=== PATIENT | male | born 1950 | race Caucasian/White ===

== ENCOUNTER 2016-10-23 09:13 | Outpatient (CLI) | payer MEDICARE | END 2016-10-23 09:14 | disposition home or self-care (01) | LOC: NAV LAB 09:13 | PROVIDERS: ATTEND Urology | DX: N40.2 Nodular prostate without lower urinary tract symptoms (principal) | CPT/HCPCS: 36415; 84153 ==

== ENCOUNTER 2016-12-10 10:16 | Outpatient (CLI) | payer MEDICARE, OTHER ==
[2016-12-10 10:57] LABS: Bilirubin Negative (Negative); Blood, Urine Trace (Negative); Glucose, Urine (Dipstick) Negative (Negative); Ketone, Urine Negative (Negative); Nitrite Negative (Negative); Protein, Urine (Dipstick) Negative (Neg-Trace); Urobilinogen 0.2 mg/dL (0.2-1.0)
[2016-12-10 11:18] LABS: RBC/HPF 0-3 HPF (0-3)
[2016-12-10 11:19] LABS: Bacteria/HPF 2+ HPF (None Seen); Transitional Epithelial 0-3 HPF (0-3)
== END 2016-12-10 10:17 | disposition home or self-care (01) ==
LOC: NAV LAB 10:16
PROVIDERS: ATTEND Urology
DX: N40.2 Nodular prostate without lower urinary tract symptoms (principal)
CPT/HCPCS: 81001; 87077; 87086; 87186

== ENCOUNTER 2017-04-06 09:18 | Outpatient (CLI) | payer MEDICARE, OTHER | END 2017-04-06 09:19 | disposition home or self-care (01) | LOC: NAV LAB 09:18 | PROVIDERS: ATTEND Urology | DX: C61 Malignant neoplasm of prostate (principal) | CPT/HCPCS: 36415; 84153 ==

== ENCOUNTER 2017-06-26 09:55 | Outpatient (CLI) | payer MEDICARE, OTHER | END 2017-06-26 09:56 | disposition home or self-care (01) | LOC: NAV LAB 09:55 | PROVIDERS: ATTEND Urology | DX: R97.20 Elevated prostate specific antigen [PSA] (principal) | CPT/HCPCS: 36415; 84153 ==

== ENCOUNTER 2018-02-20 03:46 | Emergency (ER) | payer MEDICARE, OTHER ==
[2018-02-20 04:22] LABS: #Basophils 0.1 thou/uL (0.0-0.2); #Lymphocytes 0.9 thou/uL (1.20-3.40); #Monocytes 0.6 thou/uL (0.11-0.59); #Neutrophils 7.1 thou/uL (1.40-6.50); %Basophils 0.9 % (0.0-1.0); %Eosinophils 0.5 % (0.0-10.0); %Lymphocytes 10.3 % (21.0-51.0); %Monocytes 6.7 % (0.0-10.0); %Neutrophils 81.6 % (42.0-75.0); Hemoglobin 14.8 g/dL (14.0-18.0); Mean Corpuscular HGB CONC 31.8 g/dL (32.0-36.0); Mean Corpuscular Volume 91.3 fl (80.0-94.0); Mean Platelet Volume 7.2 fL (7.4-10.4); Platelet Count 210 thou/uL (130-400); RBC Distribution Width 12.2 % (11.5-14.5); Red Blood Cell (RBC) Count 5.09 mill/uL (4.70-6.10); White Blood Cell (WBC) Count 8.7 thou/uL (4.8-10.8)
[2018-02-20] MEDS ORDERED: Pantoprazole 40 MG VIAL ONE (04:24)
[2018-02-20] MEDS ORDERED: Mag-Al Plus 1200 MG/1200 MG/120 MG/30 ML UDCUP ONE (04:24)
[2018-02-20] MEDS ORDERED: Lidocaine Viscous Sol 2% 15 ml UD Cup ONE (04:24)
[2018-02-20 04:36] LABS: ALT (SGPT) 19 U/L (8-55); AST (SGOT) 22 U/L (5-34); Alkaline Phosphatase 43 U/L (40-150); Anion Gap 12 mmol/L (10-20); BUN (Urea Nitrogen) 14 mg/dL (8.4-25.7); Bilirubin, Total 0.5 mg/dL (0.2-1.2); Calc. Creatinine Clearance 0 mL/min (70-130); Calcium 8.9 mg/dL (7.8-10.44); Carbon Dioxide 29 mmol/L (23-31); Chloride 102 mmol/L (98-107); Estimated GFR-MDRD Greater than 90; Globulin 2.9 g/dL (2.4-3.5); Glucose 116 mg/dL (80-115); Lipase 43 U/L (8-78); Protein, Total 6.9 g/dL (5.8-8.1); Sodium 139 mmol/L (136-145)
[2018-02-20 04:37] LABS: CKMB 4.5 ng/mL (0-6.6); Troponin I Less than 0.010 ng/mL (< 0.028)
[2018-02-20] MEDS ORDERED: Nitroglycerin 0.4 MG TAB (25 Tab Bottle) ONE (04:48)
[2018-02-20] MEDS ORDERED: Ketorolac Tromethamine 30 MG/ML VIAL ONE (05:33)
[2018-02-20] MEDS ORDERED: Sodium Chloride 0.9% 1,000 ML ONE (07:51)
[2018-02-20] MEDS ORDERED: Levofloxacin 500 mg/D5W 100 ml Premix Bag ONE (07:51)
[2018-02-20] MEDS ORDERED: predniSONE 20 MG TAB ONE (08:05)
--- NOTE | 2018-02-20 08:15 | RAD ---
PORTABLE CHEST: Date: 02/20/18 HISTORY: Chest pain. FINDINGS: Lungs are clear of infiltrate. Heart and mediastinum unremarkable. Postop sternotomy changes are note d. Vascular markings normal. IMPRESSION: No acute process. POS: [facility]
[2018-02-20] MEDS ORDERED: Iopamidol 370 76% 100 ML VIAL ONE (09:00)
[2018-02-20] MEDS ORDERED: Scopolamine 1.5 mg/72 hour Patch ONE (09:37)
--- NOTE | 2018-02-20 09:59 | CT ---
PRELIMINARY REPORT/[facility]/EMERGENCY AFTER HOURS PROCEDURE: EXAM: CT Abdomen and Pelvis With Intravenous Contrast EXAM DATE/TIME: Exam ordered 02/20/2018 5:51 AM CLINICAL HISTORY: 67 years old, male; Pain; Abdominal pain; Epigastric; Patient HX: Abd pain & nausea, lizbeth pressure nacho n starting yesterday afternoon, constant since then. Radiating to back. TECHNIQUE: Axial computed tomography images of the abdomen and pelvis with intravenous contrast. All CT scans at this facility use one or more dose reduction techniques, viz.: automated exposure control; ma/kV adj ustment per patient size (including targeted exams where dose is matched to indication; i.e. head); or iterative reconstruction technique. Coronal and sagittal reformatted images were created and reviewed. CONTRAST: 96 mL of ISOVUE 370 administered intravenously. COMPARISON: No relevant prior studies available. FINDINGS: Lung bases: Unremarkable. No mass. No consolidation. Mediastinum: Mild fluid distention of the distal esophagus compatible with gastroesophageal reflux. ABDOMEN: Liver: Small incidental hepatic cysts. Liver otherwise unremarkable. Gallbladder and bile ducts: Noncalcified stone versus tumefactive sludge ball at the neck of the gallbladder. Gallbladder is distended. There is subtle pericholecystic inflammation and trace pericho lecystic fluid. Findings are compatible with acute cholecystitis. No biliary ductal dilatation. Pancreas: Unremarkable. No mass. No ductal dilation. Spleen: Borderline splenomegaly. Adrenals: Unremarkable. No mass. Kidneys and ureters: Small incidental left renal cyst. Kidneys otherwise unremarkable. No hydronephro sis. Stomach and bowel: No bowel wall thickening or intestinal obstruction. PELVIS: Appendix: Appendix not visualized. No evidence of appendicitis. Bladder: Unremarkable. No mass. Reproductive: Prostatomegaly. ABDOMEN and PELVIS: Intraperitoneal space: Unremarkable. No free air. No significant fluid collection. Bones/joints: No acute fracture. No dislocation. Soft tissues: Right inguinal hernia containing fat only. Vasculature: Unremarkable. No abdominal aortic aneurysm. Lymph nodes: Unremarkable. No enlarged lymph nodes. IMPRESSION: 1. Acute cholecystitis. 2. Mild fluid distention of the distal esophagus compatible with gastroesophageal reflux. 3. Borderline splenomegaly. Thank you for allowing us to participate in the care of your patient. Dictated and Authenticated by: Jairo Gomez MD 02/20/2018 7:18 AM Central Time ([place] & [place]) FINAL REPORT CT ABDOMEN AND PELVIS WITH IV CONTRAST: Date: 02/20/18 FINDINGS/IMPRESSION: Gallbladder is distended. There is evidence of a noncalcified gallstone in the neck of the gallbladde r. Some questionable pericholecystic inflammatory change is noted as described on preliminary report. Cystic lesions are seen in the liver and left kidney. I am in agreement with the preliminary report issued by [facility]. POS: [facility]
== END 2018-02-20 09:13 | disposition short-term general hospital (02) ==
LOC: NAV ERS 03:46
DX: K81.0 Acute cholecystitis (principal); G70.00 Myasthenia gravis without (acute) exacerbation; Z79.52 Long term (current) use of systemic steroids; Z79.899 Other long term (current) drug therapy
CPT/HCPCS: 71045; 74177; 80053; 82150; 82553; 83690; 84484; 85025; 85379; 93005; 96365; 96375; C9113; J0131; J1885; J1956; J7050; J7506

== ENCOUNTER 2020-12-24 14:42 | Outpatient (CLI) | payer MEDICARE, OTHER | END 2020-12-24 14:43 | disposition home or self-care (01) | LOC: NAV RAD 14:42 | PROVIDERS: ATTEND Family Medicine | DX: L03.011 Cellulitis of right finger (principal) ==

== ENCOUNTER 2022-09-20 09:13 | Emergency (ER) | payer MEDICARE, OTHER ==
[2022-09-20] MEDS ORDERED: Metoprolol Tartrate 5 MG/5 ML VIAL ONE (09:51)
[2022-09-20 10:01] LABS: #Basophils 0.1 thou/uL (0.0-0.2); #Eosinphils 0.1 thou/uL (0.0-0.7); #Lymphocytes 0.8 thou/uL (1.20-3.40); #Monocytes 0.5 thou/uL (0.11-0.59); #Neutrophils 13.9 thou/uL (1.40-6.50); %Basophils 0.9 % (0.0-1.0); %Eosinophils 0.4 % (0.0-10.0); %Monocytes 3.5 % (0.0-10.0); %Neutrophils 90.2 % (42.0-75.0); Hemoglobin 15.7 g/dL (14.0-18.0); Mean Corpuscular HGB CONC 32.5 g/dL (32.0-36.0); Mean Corpuscular Hemoglobin 31.1 pg (27.0-31.0); Mean Corpuscular Volume 95.4 fl (78.0-98.0); Mean Platelet Volume 7.6 fL (7.4-10.4); Platelet Count 234 10x3/uL (130-400); RBC Distribution Width 12.7 % (11.5-14.5); Red Blood Cell (RBC) Count 5.05 mill/uL (4.70-6.10); White Blood Cell (WBC) Count 15.4 10x3/uL (4.8-10.8)
[2022-09-20 10:16] LABS: ALT (SGPT) 17 U/L (8-55); AST (SGOT) 17 U/L (5-34); Albumin 4.2 g/dL (3.4-4.8); Alkaline Phosphatase 60 U/L (40-110); Anion Gap 14 mmol/L (10-20); BUN (Urea Nitrogen) 11 mg/dL (8.4-25.7); Calc. Creatinine Clearance 0 mL/min (70-130); Calcium 9.2 mg/dL (7.8-10.44); Carbon Dioxide 27 mmol/L (23-31); Chloride 101 mmol/L (98-107); Estimated GFR 95; Globulin 2.7 g/dL (2.4-3.5); Glucose 134 mg/dL (83-110); Potassium 4.6 mmol/L (3.5-5.1); Protein, Total 6.9 g/dL (5.8-8.1); Sodium 137 mmol/L (136-145)
[2022-09-20] MEDS ORDERED: Apixaban 5 MG TAB PO SCH (11:30)
== END 2022-09-20 12:01 | disposition home or self-care (01) ==
LOC: NAV ERS 09:13
DX: I48.91 Unspecified atrial fibrillation (principal)
CPT/HCPCS: 71045; 80053; 83880; 84484; 85025; 85379; 93005; 96374

== ENCOUNTER 2022-09-22 02:20 | Emergency (ER) | payer MEDICARE, OTHER ==
[2022-09-22] MEDS ORDERED: Diltiazem 125 MG/25 ML ONE (02:47)
[2022-09-22] MEDS ORDERED: Sodium Chloride 0.9% 100 ML ONE (02:47)
[2022-09-22 02:48] LABS: #Basophils 0.3 thou/uL (0.0-0.2); #Lymphocytes 1.3 thou/uL (1.20-3.40); #Monocytes 1.3 thou/uL (0.11-0.59); %Basophils 1.6 % (0.0-1.0); %Lymphocytes 7.4 % (21.0-51.0); %Monocytes 7.1 % (0.0-10.0); %Neutrophils 83.9 % (42.0-75.0); Hemoglobin 15.7 g/dL (14.0-18.0); Mean Corpuscular HGB CONC 33.3 g/dL (32.0-36.0); Mean Corpuscular Hemoglobin 31.7 pg (27.0-31.0); Mean Platelet Volume 7.8 fL (7.4-10.4); Platelet Count 268 10x3/uL (130-400); RBC Distribution Width 12.7 % (11.5-14.5); Red Blood Cell (RBC) Count 4.96 mill/uL (4.70-6.10); White Blood Cell (WBC) Count 17.9 10x3/uL (4.8-10.8)
[2022-09-22 02:53] LABS: INR-International Normal Ratio 1.4; PTT 35.2 sec (22.9-36.1); Prothrombin Time 17.6 sec (12.0-14.7)
[2022-09-22 03:07] LABS: ALT (SGPT) 22 U/L (8-55); AST (SGOT) 20 U/L (5-34); Albumin 4.2 g/dL (3.4-4.8); Alkaline Phosphatase 60 U/L (40-110); Anion Gap 17 mmol/L (10-20); BUN (Urea Nitrogen) 16 mg/dL (8.4-25.7); Bilirubin, Total 1.1 mg/dL (0.2-1.2); Calc. Creatinine Clearance 0 mL/min (70-130); Calcium 9.5 mg/dL (7.8-10.44); Carbon Dioxide 31 mmol/L (23-31); Chloride 93 mmol/L (98-107); Estimated GFR 92; Globulin 3.2 g/dL (2.4-3.5); Glucose 229 mg/dL (83-110); Potassium 5.2 mmol/L (3.5-5.1); Protein, Total 7.4 g/dL (5.8-8.1); Sodium 136 mmol/L (136-145)
[2022-09-22] MEDS ORDERED: Dextrose 5% in Water 250 ML ONE (03:17)
[2022-09-22] MEDS ORDERED: Furosemide 20 MG/2 ML VIAL ONE (03:21)
[2022-09-22 03:26] LABS: SARS-CoV-2 NAA Rapid Test Not Detected (NotDetected)
[2022-09-22 03:59] LABS: Bacteria/HPF Rare-Few HPF (None Seen); Bilirubin Negative (Negative); Blood, Urine Small (Negative); Clarity Clear (Clear); Glucose, Urine (Dipstick) Negative (Negative); Ketone, Urine Negative (Negative); Leukocyte Small (Negative); Nitrite Negative (Negative); Protein, Urine (Dipstick) 30 mg/dL (Neg-Trace); RBC/HPF 0-3 HPF (0-3); Squamous Epithelial None Seen HPF (0-3); pH, Urine 5.5 (5.0-9.0)
== END 2022-09-22 04:36 | disposition short-term general hospital (02) ==
LOC: NAV ERS 02:20
DX: J96.01 Acute respiratory failure with hypoxia (principal); I50.9 Heart failure, unspecified; I48.20 Chronic atrial fibrillation, unspecified; Z79.01 Long term (current) use of anticoagulants; Z20.822 Contact with and (suspected) exposure to COVID-19
CPT/HCPCS: 71045; 80053; 81003; 81015; 83605; 83880; 84484; 85025; 85610; 85730; 87040; 87086; 93005; 94760; 96365; 96374; 96376; J1940; J7070

== ENCOUNTER 2022-09-30 15:38 | Outpatient (CLI) | payer MEDICARE, OTHER | END 2022-09-30 15:39 | disposition home or self-care (01) | LOC: NAV RAD 15:38 | PROVIDERS: ATTEND Family Medicine | DX: J96.01 Acute respiratory failure with hypoxia (principal) | CPT/HCPCS: 71046 ==

== ENCOUNTER 2023-10-19 02:30 | Emergency (ER) | payer MEDICARE, OTHER ==
[2023-10-19] MEDS ORDERED: Furosemide 40 MG (4 mL) VIAL ONE (02:47)
[2023-10-19] MEDS ORDERED: dilTIAZem 25 MG/5 ML VIAL ONE (02:48)
[2023-10-19 02:56] LABS: #Basophils 0.2 thou/uL (0.0-0.2); #Eosinphils 0.2 thou/uL (0.0-0.7); #Lymphocytes 3.1 thou/uL (1.20-3.40); #Monocytes 1.8 thou/uL (0.11-0.59); #Neutrophils 13.9 thou/uL (1.40-6.50); %Eosinophils 1.1 % (0.0-10.0); %Lymphocytes 16.1 % (21.0-51.0); %Monocytes 9.4 % (0.0-10.0); %Neutrophils 72.3 % (42.0-75.0); Hemoglobin 15.6 g/dL (14.0-18.0); Mean Corpuscular HGB CONC 33.2 g/dL (32.0-36.0); Mean Corpuscular Hemoglobin 31.8 pg (27.0-31.0); Mean Corpuscular Volume 95.9 fl (78.0-98.0); Mean Platelet Volume 8.1 fL (7.4-10.4); Platelet Count 275 10x3/uL (130-400); White Blood Cell (WBC) Count 19.2 10x3/uL (4.8-10.8)
[2023-10-19 03:01] LABS: INR-International Normal Ratio 1.3; Prothrombin Time 17.2 sec (12.0-14.7)
[2023-10-19 03:02] LABS: PTT 27.5 sec (22.9-36.1)
[2023-10-19 03:08] LABS: ALT (SGPT) 20 U/L (8-55); AST (SGOT) 23 U/L (5-34); Albumin 4.2 g/dL (3.4-4.8); Alkaline Phosphatase 62 U/L (40-110); Anion Gap 15 mmol/L (10-20); BUN (Urea Nitrogen) 13 mg/dL (8.4-25.7); Bilirubin, Total 0.6 mg/dL (0.2-1.2); Calc. Creatinine Clearance 0 mL/min (70-130); Calcium 9.1 mg/dL (7.8-10.44); Carbon Dioxide 31 mmol/L (23-31); Chloride 99 mmol/L (98-107); Estimated GFR 91; Globulin 3.5 g/dL (2.4-3.5); Glucose 174 mg/dL (83-110); Potassium 4.3 mmol/L (3.5-5.1); Protein, Total 7.7 g/dL (5.8-8.1); Sodium 141 mmol/L (136-145)
[2023-10-19] MEDS ORDERED: cefTRIAXone (ROCEPHIN) 2 GM VIAL ONE (03:08)
[2023-10-19] MEDS ORDERED: Sodium Chloride 0.9% 100 ML ONE (03:08)
[2023-10-19 03:24] LABS: SARS-CoV-2 NAA Rapid Test DETECTED (NotDetected)
== END 2023-10-19 04:39 | disposition short-term general hospital (02) ==
LOC: NAV ERS 02:30
DX: U07.1 COVID-19 (principal); J12.82 Pneumonia due to coronavirus disease 2019; I48.91 Unspecified atrial fibrillation
CPT/HCPCS: 71045; 80053; 83605; 83880; 84484; 85025; 85610; 85730; 87040; 87804; 93005; 94760; 96365; 96375; J0696; J1940; J3490; U0002

== ENCOUNTER 2024-07-18 14:50 | Outpatient (CLI) | payer MEDICARE, OTHER | END 2024-07-18 14:51 | disposition home or self-care (01) | LOC: NAV RAD 14:50 | PROVIDERS: ATTEND Student in an Organized Health Care Education/Training Program | DX: J11.00 Influenza due to unidentified influenza virus with unspecified type of pneumonia (principal) | CPT/HCPCS: 71046 ==